=== PATIENT | male | born 1975 | race Caucasian/White ===

== ENCOUNTER 2024-07-26 07:39 | Inpatient (IN) | payer OTHER ==
[2024-07-26] MEDS ORDERED: Naloxone 0.4 MG/ML SDV IVPUSH PRN (08:13)
[2024-07-26 08:22] LABS: BASE EXCESS VENOUS -13.5 mm/L; BICARBONATE,VENOUS 10.6 mmol/L; CARBOXYHEMOGLOBIN 2.4 % (0.0-1.6); METHEMOGLOBIN 2.4 %; O2 SATURATION VENOUS 85.9; OXYHEMOGLOBIN 81.8 %; PCO2 VENOUS 21.6 mm/Hg; PH,VENOUS 7.313 (7.350-7.450); PO2 VENOUS 53.8 mm/Hg
[2024-07-26] MEDS: Sodium Chloride 0.9% 1,000 ML IV SCH ×2 (08:23→11:29)
[2024-07-26] MEDS: Prochlorperazine 10 MG/2 ML SDV IVPUSH ONE (08:24)
[2024-07-26] MEDS: HYDROmorphone 0.5 MG/0.5 ML Syringe IVPUSH PRN (08:26)
[2024-07-26 08:48] LABS: ALBUMIN 3.5 g/dL (3.4-5.0); BILIRUBIN TOTAL 1.5 mg/dL (0.2-1.0); BLOOD UREA NITROGEN,BUN 10 mg/dL (7-18); CALCIUM 7.1 mg/dL (8.5-10.1); CHLORIDE,CL 89 mmol/L (100-108); EST CRCL DRUG DOSING (CG) 80.18 mL/min; ESTIMATED GFR 75 mL/min (>60); MAGNESIUM 1.4 mg/dL (1.8-2.4); POTASSIUM,K 4.2 mmol/L (3.6-5.2); SODIUM,NA 125 mmol/L (140-148)
[2024-07-26 09:15] LABS: ANION GAP 32.2 mmol/L (5.0-14.0); CARBON DIOXIDE,CO2 8 mmol/L (21-32); GLUCOSE RANDOM 502 mg/dL (74-106)
[2024-07-26 09:16] LABS: ALKALINE PHOSPHATASE 81 U/L (46-116); CREATININE 1.2 mg/dL (0.8-1.3)
[2024-07-26] MEDS ORDERED: 50% Dextrose in Water 50 ML Syringe IVPUSH PRN ×2 (09:16→14:15)
[2024-07-26] MEDS ORDERED: Glucagon,Human Recombinant 1 MG Vial IM PRN (09:16)
[2024-07-26 09:17] LABS: ALANINE AMINOTRANSFERASE,ALT 6 U/L (12-78); ASPARTATE AMNIOTRANSFERASE,AST 26 U/L (15-37)
[2024-07-26] MEDS: Iopamidol 612 MG/ML 100 ML Bottle IV PRN (09:32)
[2024-07-26] MEDS: Sodium Chloride 0.9% 10 ML Syringe FLUSH PRN (09:32)
[2024-07-26] MEDS: Sodium Chloride 0.9% 80 ML IV ONE (09:32)
[2024-07-26 09:39] LABS: A/G RATIO 1.8 (1.2-2.2); PROTEIN TOTAL,TP 5.5 g/dL (6.4-8.2)
[2024-07-26] MEDS: Insulin Regular, Human 100 Units/ML 3 ML Vial IV ONE (09:41)
[2024-07-26 09:47] LABS: APPEARANCE,URINE CLEAR (CLEAR); BILIRUBIN,URINE MODERATE (NEGATIVE); COLOR,URINE YELLOW (YELLOW); GLUCOSE,URINE 500 mg/dL (NEGATIVE); KETONES,URINE 80 mg/dL (NEGATIVE); LEUKOCYTE ESTERASE,URINE NEGATIVE (NEGATIVE); NITRITE,URINE NEGATIVE (NEGATIVE); OCCULT BLOOD,URINE TRACE-INTACT (NEGATIVE); PH,URINE 5.5 (5.0-8.0); PROTEIN,URINE 100 mg/dL (NEGATIVE); UROBILINOGEN,URINE 0.2 EU/dL (0.2-1.0)
[2024-07-26 09:55] LABS: AMORPHOUS SEDIMENT,URINE NOT SEEN; BACTERIA,URINE NOT SEEN; EPITHELIAL CELLS,URINE FEW; MUCUS,URINE FEW; RBC,URINE 0-5 (0-5); WBC,URINE NOT SEEN (0-5)
[2024-07-26 11:19] LABS: ALBUMIN 3.2 g/dL (3.4-5.0); BILIRUBIN INDIRECT 1.49; EST CRCL DRUG DOSING (CG) 80.18 mL/min; POTASSIUM,K 4.3 mmol/L (3.6-5.2)
[2024-07-26 11:31] LABS: ANION GAP 29.3 mmol/L (5.0-14.0)
[2024-07-26 11:32] LABS: BILIRUBIN DIRECT 0.11 mg/dL (0.0-0.2); BILIRUBIN TOTAL 1.6 mg/dL (0.2-1.0); CREATININE 1.2 mg/dL (0.8-1.3)
[2024-07-26 11:33] LABS: CALCIUM 7.1 mg/dL (8.5-10.1)
[2024-07-26] MEDS ORDERED: Magnesium Sulfate/Water Premix 2 GM in Premix Bag 1 BAG IV SCH (12:00)
[2024-07-26] MEDS: Magnesium Sulfate/Water Premix 2 GM in Premix Bag 1 BAG IV ONE (12:10)
[2024-07-26] MEDS: Nicotine 21 MG/24 Hr Patch TRDERM ONE (12:11)
[2024-07-26 12:19] LABS: A/G RATIO 0.6 (1.2-2.2); PROTEIN TOTAL,TP 8.2 g/dL (6.4-8.2)
[2024-07-26] MEDS ORDERED: LORazepam 2 MG/ML SDV IV PRN (13:03)
[2024-07-26] MEDS ORDERED: Ondansetron 4 MG/2 ML SDV IV PRN (13:03)
[2024-07-26] MEDS ORDERED: Acetaminophen 650 MG Supp RECTAL PRN (13:19)
[2024-07-26 14:56] LABS: CALCIUM 7.6 mg/dL (8.5-10.1); CREATININE 1.1 mg/dL (0.8-1.3); EST CRCL DRUG DOSING (CG) 87.47 mL/min; PHOSPHORUS 2.8 mg/dL (2.5-4.9); POTASSIUM,K 4.4 mmol/L (3.6-5.2)
[2024-07-26 15:06] LABS: MAGNESIUM 2.4 mg/dL (1.8-2.4)
[2024-07-26 15:09] LABS: ANION GAP 29.4 mmol/L (5.0-14.0)
[2024-07-26 18:22] LABS: CALCIUM 7.9 mg/dL (8.5-10.1); CREATININE 1.2 mg/dL (0.8-1.3); EST CRCL DRUG DOSING (CG) 80.18 mL/min; POTASSIUM,K 4.3 mmol/L (3.6-5.2)
[2024-07-26 18:23] LABS: ANION GAP 20.3 mmol/L (5.0-14.0)
[2024-07-26 20:20] LABS: PHOSPHORUS 2.7 mg/dL (2.5-4.9); POTASSIUM,K 4.4 mmol/L (3.6-5.2)
[2024-07-26 22:14] LABS: CALCIUM 7.9 mg/dL (8.5-10.1); CREATININE 1.1 mg/dL (0.8-1.3); EST CRCL DRUG DOSING (CG) 87.47 mL/min; POTASSIUM,K 4.1 mmol/L (3.6-5.2)
[2024-07-26 22:15] LABS: ANION GAP 18.1 mmol/L (5.0-14.0)
[2024-07-27 02:57] LABS: CALCIUM 7.9 mg/dL (8.5-10.1); EST CRCL DRUG DOSING (CG) 96.22 mL/min; MAGNESIUM 1.8 mg/dL (1.8-2.4); PHOSPHORUS 2.2 mg/dL (2.5-4.9); POTASSIUM,K 3.7 mmol/L (3.6-5.2)
[2024-07-27 02:59] LABS: ANION GAP 18.7 mmol/L (5.0-14.0)
[2024-07-27 05:58] LABS: A/G RATIO 0.6 (1.2-2.2); ALBUMIN 2.7 g/dL (3.4-5.0); BILIRUBIN TOTAL 0.9 mg/dL (0.2-1.0); MAGNESIUM 1.9 mg/dL (1.8-2.4)
[2024-07-27 06:13] LABS: BASOPHILS ABSOLUTE AUTO 0.03 K/uL (0.00-0.10); BASOPHILS PERCENT AUTO 0.2 % (0.1-1.3); EOSINOPHILS PERCENT AUTO 0.1 % (0.0-5.4); HEMATOCRIT 38.5 % (38.4-49.7); HEMOGLOBIN 14.6 g/dL (12.9-16.9); IMMATURE GRAN ABSOLUTE AUTO 0.12 K/uL (0.00-0.23); LYMPHOCYTES ABSOLUTE AUTO 0.86 K/uL (0.8-3.3); LYMPHOCYTES PERCENT AUTO 7.2 % (11.4-47.7); MEAN CORPUSCULAR HEMOGLOBIN 37.1 pg (31.6-35.5); MEAN CORPUSCULAR HGB CONC 37.9 g/dL (31.6-35.5); MEAN CORPUSCULAR VOLUME 97.7 fL (81.4-99.0); MONOCYTES ABSOLUTE AUTO 0.63 K/uL (0.20-0.90); MONOCYTES PERCENT AUTO 5.2 % (3.3-12.6); NEUTROPHILS ABSOLUTE AUTO 10.37 K/uL (1.0-7.6); NEUTROPHILS PERCENT AUTO 86.3 % (40.0-78.1); PLATELET COUNT,PLT 135 K/uL (130-375); RED BLOOD CELL COUNT 3.94 M/uL (4.14-5.76)
[2024-07-27 06:38] LABS: EOSINOPHILS ABSOLUTE AUTO 0.01 K/uL (0.00-0.40)
[2024-07-27 06:51] LABS: BILIRUBIN DIRECT 0.15 mg/dL (0.0-0.2); BILIRUBIN INDIRECT 0.75
[2024-07-27 06:54] LABS: CREATININE 0.9 mg/dL (0.8-1.3); EST CRCL DRUG DOSING (CG) 106.91 mL/min; POTASSIUM,K 3.6 mmol/L (3.6-5.2)
[2024-07-27 08:03] LABS: ANION GAP 16.6 mmol/L (5.0-14.0)
[2024-07-27 08:57] LABS: MAGNESIUM 1.9 mg/dL (1.8-2.4); PHOSPHORUS 1.7 mg/dL (2.5-4.9); POTASSIUM,K 3.6 mmol/L (3.6-5.2)
[2024-07-27] MEDS: Insulin Glargine,Human Rec. Analog 100 Units/ML 3 ML Pen SUBCUT SCH (09:52)
[2024-07-27] MEDS: Insulin Lispro 100 Unit/ML 3 ML KwikPen SUBCUT SCH (10:00)
[2024-07-27] MEDS: VANCOmycin 2 GM in Sodium Chloride 0.9% 500 ML IV ONE (11:20)
[2024-07-27 11:22] LABS: CALCIUM 8.4 mg/dL (8.5-10.1); CREATININE 0.9 mg/dL (0.8-1.3); EST CRCL DRUG DOSING (CG) 106.91 mL/min; POTASSIUM,K 3.5 mmol/L (3.6-5.2)
[2024-07-27 11:23] LABS: ANION GAP 19.5 mmol/L (5.0-14.0)
[2024-07-27] MEDS: Cefepime 1 GM in Sodium Chloride 0.9% 50 ML IV SCH (13:38)
[2024-07-27] MEDS ORDERED: 50% Dextrose in Water 50 ML Syringe IVPUSH PRN (19:08)
[2024-07-27] MEDS ORDERED: Glucagon,Human Recombinant 1 MG Vial IM PRN (19:08)
[2024-07-27] MEDS: Nicotine 21 MG/24 Hr Patch TRDERM SCH (19:34)
[2024-07-27] MEDS: Melatonin 3 MG Tab PO PRN (20:37)
[2024-07-27] MEDS: Bisacodyl 10 MG Supp RECTAL ONE (22:40)
[2024-07-28 07:49] LABS: RED BLOOD CELL COUNT 4.76 M/uL (4.14-5.76)
[2024-07-28 07:55] LABS: HEMATOCRIT 45.9 % (38.4-49.7); MEAN CORPUSCULAR HEMOGLOBIN 39.7 pg (31.6-35.5); MEAN CORPUSCULAR VOLUME 96.4 fL (81.4-99.0)
[2024-07-28 07:56] LABS: MEAN CORPUSCULAR HGB CONC 41.2 g/dL (31.6-35.5)
[2024-07-28 07:57] LABS: LYMPHOCYTES PERCENT AUTO 7.8 % (11.4-47.7); MONOCYTES PERCENT AUTO 7.4 % (3.3-12.6); NEUTROPHILS PERCENT AUTO 83.4 % (40.0-78.1); PLATELET COUNT,PLT 199 K/uL (130-375)
[2024-07-28 07:58] LABS: BASOPHILS PERCENT AUTO 0.2 % (0.1-1.3); EOSINOPHILS PERCENT AUTO 0.1 % (0.0-5.4)
[2024-07-28 08:01] LABS: IMMATURE GRAN PERCENT AUTO 1.1 % (0.0-0.7); NEUTROPHILS ABSOLUTE AUTO 11.69 K/uL (1.0-7.6)
[2024-07-28 08:02] LABS: BASOPHILS ABSOLUTE AUTO 0.03 K/uL (0.00-0.10); EOSINOPHILS ABSOLUTE AUTO 0.01 K/uL (0.00-0.40); IMMATURE GRAN ABSOLUTE AUTO 0.15 K/uL (0.00-0.23); LYMPHOCYTES ABSOLUTE AUTO 1.09 K/uL (0.8-3.3); MONOCYTES ABSOLUTE AUTO 1.03 K/uL (0.20-0.90)
[2024-07-28 08:04] LABS: HEMOGLOBIN 18.9 g/dL (12.9-16.9)
[2024-07-28 08:47] LABS: ANION GAP 19.4 mmol/L (5.0-14.0); CALCIUM 8.8 mg/dL (8.5-10.1); CREATININE 0.8 mg/dL (0.8-1.3); EST CRCL DRUG DOSING (CG) 120.27 mL/min; POTASSIUM,K 3.4 mmol/L (3.6-5.2)
[2024-07-28] MEDS: Insulin Glargine,Human Rec. Analog 100 Units/ML 3 ML Pen SUBCUT SCH (08:50)
[2024-07-28] MEDS ORDERED: Insulin Glargine,Human Rec. Analog 100 Units/ML 3 ML Pen SUBCUT SCH (09:00)
[2024-07-28] MEDS: oxyCODONE 5 MG Tab PO PRN (14:18)
[2024-07-28] MEDS: Docusate Sodium 100 MG Cap PO SCH (20:36)
[2024-07-29] MEDS: LORazepam 1 MG Tab PO PRN (02:53)
[2024-07-29 05:43] LABS: CREATININE 0.7 mg/dL (0.8-1.3); EST CRCL DRUG DOSING (CG) 137.45 mL/min; POTASSIUM,K 3.2 mmol/L (3.6-5.2)
[2024-07-29 06:05] LABS: ANION GAP 14.2 mmol/L (5.0-14.0)
[2024-07-29] MEDS ORDERED: Insulin Glargine,Human Rec. Analog 100 Units/ML 3 ML Pen SUBCUT SCH (09:00)
[2024-07-29] MEDS: Potassium Chloride 20 MEQ Tab.ER PO ONE (09:18)
[2024-07-29] MEDS: Insulin Glargine,Human Rec. Analog 100 Units/ML 3 ML Pen SUBCUT SCH (09:21)
[2024-07-29] MEDS: Sodium Chloride 0.9% 10 ML Syringe FLUSH PRN (09:27)
== END 2024-07-29 14:49 | disposition home or self-care (01) | DRG 438 ==
LOC: JP.ED 07:39 → JP.ICU 12:59
PROVIDERS: ADMIT Hospitalist; ATTEND Internal Medicine
PROC: 4A033R1 Measurement of Arterial Saturation, Peripheral, Percutaneous Approach (ICD-10-PCS; principal; 2024-07-26)
DX: K85.20 Alcohol induced acute pancreatitis without necrosis or infection (principal); E11.10 Type 2 diabetes mellitus with ketoacidosis without coma; F15.90 Other stimulant use, unspecified, uncomplicated; F10.20 Alcohol dependence, uncomplicated; E87.6 Hypokalemia; Z91.09 Other allergy status, other than to drugs and biological substances; Z87.891 Personal history of nicotine dependence
CPT/HCPCS: 36415; 74177; 74177-26; 76705; 76705-26; 80048; 80053; 80076; 80307; 81001; 82009; 82803; 82947; 83036; 83605; 83690; 83735; 84100; 84132; 85025; 87040; 93005; 96361; 96365; 96375; 96376; 99222; 99232; 99238; 99285; 99285-25; A9270-GY; J0692; J0780; J1815; J1815-GY; J3475; J3490; J7030; J7040; Q9967